=== PATIENT | male | born 1965 | race Caucasian/White ===

== ENCOUNTER 2016-11-15 11:52 | Inpatient (IN) | payer SELFPAY ==
[~2016-11-15] VITALS: Ht 170.1 cm; Wt 79.0 kg
[2016-11-15] VITALS (13 sets, daily range): BP systolic 169–227; BP diastolic 100–153
--- NOTE | ~2016-11-15 | EKG ---
[place], [place] ELECTROCARDIOGRAM REPORT NAME: KISHORE BEE UNIT #: [id number] ROOM: 422 DOCTOR: SOHAN WELSH MD BIRTHDATE: [birth year] DOS: 11/16/2016 STUDY DONE: 11/16/2016. TIME: 09:07 a.m. Normal sinus rhythm at rate of 62. Leftward axis with left ventricular hypertrophy. Lateral T-wave flattening possibly due to hypertrophy. Abnormal electrocardiogram. SOHAN WELSH MD CM:EKGRPT:ELECTROCARDIOGRAM REPORT [id number] SOHAN WELSH MD
--- NOTE | ~2016-11-15 | WRIGHTHP ---
[place], [place] PATIENT HISTORY AND PHYSICAL EXAM NAME: KISHORE BEE UNIT #: [id number] ROOM: 422 DOCTOR: MARILYNN WILSON DO BIRTHDATE: [birth year] DOS: 11/16/2016 PRIMARY CARE PHYSICIAN: None. The patient was seen and evaluated with the resident on 11/16/2016. Please see the resident's note for further details. ASSESSMENT: 1. Hypertension urgency. 2. History of hypertension; however, noncompliant with taking medications. 3. Right knee pain. 4. Elevated liver function tests. 5. Tobacco abuse. 6. Dyslipidemia. 7. Alcohol abuse, admitting to drinking 6-12 beers daily. PLAN: The patient's blood pressure is better controlled. The patient feels completely normal. He denies chest pain or shortness of breath. He will be discharged today. He will be sent home with [facility] and instructed to follow up and the [facility]. MARILYNN WILSON DO CM:HISPHYS:PATIENT HISTORY AND PHYSICAL EXAMINATION 1303 [id number] MARILYNN WILSON DO 11/16/16 1336 interface
[~2016-11-15 11:52] MED LIST: ANAPROX DS550 MG PO; METOPROLOL TART50 M1 PO; MOTRIN800 MG PO; Motrin,Rufen800 MG PO; ZITHROMAX Z PA250 MG PO
[2016-11-16] VITALS: BP 158/96
[2016-11-16 06:08] LABS: BASO % 0.5 % (0.0-1.0); EOS # 0.1 10*3/uL (0.0-0.4); EOS % 2.3 % (1.0-4.0); HEMATOCRIT 47.1 % (42.0-52.0); HEMOGLOBIN 15.7 g/dl (14.0-18.0); LYMPH # 1.7 10*3/uL (1.3-4.4); LYMPH % 27.3 % (27.0-41.0); MEAN CELL VOLUME 93.5 fl (80.0-94.0); MEAN CORPUSCULAR HGB 31.2 pg (27.0-31.0); MEAN CORPUSCULAR HGB CONC 33.3 g/dl (33.0-37.0); MEAN PLATELET VOLUME 10.5 fl (9.6-12.3); MONO # 0.7 10*3/uL (0.1-1.0); MONO % 11.1 % (3.0-9.0); NEUT # 3.6 10*3/uL (2.3-7.9); NEUT % 58.5 % (47.0-73.0); PLATELET COUNT AUTOMATED 180 10*3/uL (130-400); RED BLOOD COUNT 5.04 10*6/uL (4.50-5.90); RED CELL DISTRI WIDTH 12.9 % (0-14.5); WHITE BLOOD COUNT 6.2 10*3/uL (4.8-10.8)
[2016-11-16 06:36] LABS: ALBUMIN 3.5 gm/dl (3.1-4.5); BUN 11 mg/dl (7-24); CARBON DIOXIDE 28 mmol/L (21-32); CHLORIDE 103 mmol/L (98-107); EST GLOM FILT AFRICAN AMERICAN > 60 ml/min; GLUCOSE 95 mg/dL (65-99); MAGNESIUM 2.3 mg/dL (1.5-2.1); POTASSIUM 3.6 mmol/L (3.5-5.1); SGOT/AST 57 IU/L (3-35); SGPT/ALT 98 U/L (12-78); SODIUM 139 mmol/L (136-145)
[2016-11-16 06:43] LABS: ALKALINE PHOSPHATASE 64 U/L (45-117); BILIRUBIN, TOTAL 0.9 mg/dl (0.2-1.0); CHOLESTEROL 188 mg/dL (<200); FREE T4 1.03 ng/dl (0.76-1.46); HDL CHOLESTEROL 69 mg/dl (40-60); LDL CHOLESTEROL 82 mg/dL (9-159); TOTAL PROTEIN 7.4 gm/dL (6.4-8.2); TRIGLYCERIDES 183 mg/dl (<150); VLDL CHOLESTEROL 37 mg/dL (6-40)
[2016-11-16 06:46] LABS: INTERNATIONAL NORM RATIO 1.1 (2.0-3.5); PROTHROMBIN TIME 11.6 SECONDS (9.0-12.4)
[2016-11-16 07:58] LABS: VITAMIN D, 25-HYDROXY 19.8 ng/mL (30-100)
[2016-11-16 07:59] LABS: FOLIC ACID 13.01 ng/mL (>5.38)
[2016-11-16 08:00] VITALS: BP 148/90
[2016-11-16] MEDS ORDERED: D-1000 185 MG-11 TAB PO (11:29)
[2016-11-16] MEDS ORDERED: AMLODIPINE BESY1 TAB PO (11:29)
== END 2016-11-16 14:22 | disposition home or self-care (01) | DRG 305 ==
LOC: ED 11:52 → EDHOLD 16:42 → 4E 17:00
PROVIDERS: Internal Medicine Hospice and Palliative Medicine
DX: I16.0 Hypertensive urgency (principal); F10.10 Alcohol abuse, uncomplicated; I10 Essential (primary) hypertension; M25.561 Pain in right knee; Z72.0 Tobacco use; Z71.6 Tobacco abuse counseling; Z91.14 Patient's other noncompliance with medication regimen; Z79.899 Other long term (current) drug therapy; Z71.41 Alcohol abuse counseling and surveillance of alcoholic

== ENCOUNTER → 2016-11-19 | Outpatient (CLI) | payer SELFPAY ==
[~2016-11-19] MED LIST changes: +AMLODIPINE BESY1 TAB PO; +D-1000 185 MG-11 TAB PO
== END | disposition home or self-care (01) ==
LOC: RESCLI 00:41
DX: I10 Essential (primary) hypertension (principal); F10.10 Alcohol abuse, uncomplicated; E55.9 Vitamin D deficiency, unspecified; Z72.0 Tobacco use; Z71.6 Tobacco abuse counseling

== ENCOUNTER → 2016-11-26 | Outpatient (CLI) | payer SELFPAY | END | disposition home or self-care (01) | LOC: RESCLI 01:08 | DX: I10 Essential (primary) hypertension (principal); F10.10 Alcohol abuse, uncomplicated; E55.9 Vitamin D deficiency, unspecified; Z72.0 Tobacco use; Z71.6 Tobacco abuse counseling ==

== ENCOUNTER → 2017-01-02 | Outpatient (CLI) | payer SELFPAY | END | disposition home or self-care (01) | LOC: RESCLI 12-26 02:25 | DX: I10 Essential (primary) hypertension (principal); E55.9 Vitamin D deficiency, unspecified; F10.10 Alcohol abuse, uncomplicated; Z72.0 Tobacco use ==

== ENCOUNTER → 2017-05-22 | Outpatient (CLI) | payer SELFPAY | END | disposition home or self-care (01) | LOC: RESCLI 03:16 | DX: I10 Essential (primary) hypertension (principal); E55.9 Vitamin D deficiency, unspecified ==

== ENCOUNTER → 2017-08-19 | Outpatient (CLI) | payer SELFPAY | END | disposition home or self-care (01) | LOC: RESCLI 03:10 | DX: I10 Essential (primary) hypertension (principal); E55.9 Vitamin D deficiency, unspecified; I51.7 Cardiomegaly; E66.3 Overweight; Z87.891 Personal history of nicotine dependence ==

== ENCOUNTER 2018-12-25 15:41 | Inpatient (IN) | payer MEDICAID ==
[~2018-12-25] VITALS: Ht 170.1 cm; Wt 77.1 kg
[2018-12-25] VITALS (8 sets, daily range): BP systolic 143–184; BP diastolic 97–114
--- NOTE | ~2018-12-25 | EKG ---
[place], [place] ELECTROCARDIOGRAM REPORT NAME: KISHORE BEE UNIT #: [id number] ROOM: 511 DOCTOR: JEROMY DRAFT REPORT BIRTHDATE: [birth year] [facility] Test Date: 2018-12-25 Test Time: 20:16:42 Pat Name: KISHORE BEE Department: Room: 511 Gender: M Bump Grader Operator: SS RESP : 1965 Requested By: CHRISTINA STEVENS Order Number: [id number] Reading MD: Marquise Alexis MD Measurements Intervals [place] Rate: 112 P: MO: QRS: -21 QRSD: 108 T: 50 QT: 335 QTc: 458 Interpretive Statements Sinus tachycardia Borderline left axis deviation Abnormal R-wave progression, late transition Minimal ST depression, lateral leads Electronically Signed On 12-26-2018 9:14:27 PDT by Marquise Alexis MD CM:EKGRPT:ELECTROCARDIOGRAM REPORT 15 CHRISTINA KOLB DRAFT REPORT CHRISTINA STEVENS DO
--- NOTE | ~2018-12-25 | EKG ---
[place], [place] ELECTROCARDIOGRAM REPORT NAME: KISHORE BEE UNIT #: [id number] ROOM: 511 DOCTOR: JEROMY DRAFT REPORT BIRTHDATE: [birth year] [facility] Test Date: 2018-12-25 Test Time: 23:27:35 Pat Name: KISHORE BEE Department: Room: 511 Gender: M Emery Grinder: SS RESP : 1965 Requested By: CHRISTINA STEVENS Order Number: [id number] Reading MD: Marquise Alexis MD Measurements Intervals [place] Rate: 98 P: 46 ND: 134 QRS: -37 QRSD: 94 T: 18 QT: 363 QTc: 464 Interpretive Statements Sinus rhythm Left axis deviation Abnormal R-wave progression, late transition Minimal ST depression, lateral leads Baseline wander in lead(s) II,III,aVF Electronically Signed On 12-26-2018 9:14:39 PDT by Marquise Alexis MD CM:EKGRPT:ELECTROCARDIOGRAM REPORT [id number] CHRISTINA KOLB DRAFT REPORT CHRISTINA STEVENS DO
--- NOTE | ~2018-12-25 | EKG ---
[place], [place] ELECTROCARDIOGRAM REPORT NAME: KISHORE BEE UNIT #: [id number] ROOM: 511 DOCTOR: JEROMY DRAFT REPORT BIRTHDATE: [birth year] [facility] Test Date: 2018-12-25 Test Time: 17:02:42 Pat Name: KISHORE BEE Department: Room: 511 Gender: M Claim Auditor: : 1965 Requested By: CADEN SUGGS DNP Order Number: [id number] Reading MD: Marquise Alexis MD Measurements Intervals [place] Rate: 112 P: -1 [place]: 184 QRS: -32 QRSD: 88 T: 37 QT: 321 QTc: 438 Interpretive Statements Sinus tachycardia Abnormal R-wave progression, late transition Inferior infarct, old Baseline wander in lead(s) V3 Electronically Signed On 12-26-2018 9:13:16 PDT by Marquise Alexis MD CM:EKGRPT:ELECTROCARDIOGRAM REPORT [id number] CADEN SUGGS DNP EPIPHANY DRAFT REPORT CADEN SUGGS DNP
[2018-12-25 17:22] LABS: BASO # 0.1 10*3/uL (0.0-0.1); BASO % 0.6 % (0.0-1.0); EOS % 0.1 % (1.0-4.0); HEMATOCRIT 51.3 % (42.0-52.0); HEMOGLOBIN 17.8 g/dl (14.0-18.0); LYMPH # 1.2 10*3/uL (1.3-4.4); LYMPH % 13.9 % (27.0-41.0); MEAN CELL VOLUME 92.8 fl (80.0-94.0); MEAN CORPUSCULAR HGB 32.2 pg (27.0-31.0); MEAN CORPUSCULAR HGB CONC 34.7 g/dl (33.0-37.0); MEAN PLATELET VOLUME 10.1 fl (9.6-12.3); MONO % 10.7 % (3.0-9.0); NEUT # 6.6 10*3/uL (2.3-7.9); NEUT % 74.4 % (47.0-73.0); PLATELET COUNT AUTOMATED 194 10*3/uL (130-400); RED BLOOD COUNT 5.53 10*6/uL (4.50-5.90); RED CELL DISTRI WIDTH 12.3 % (0-14.5); WHITE BLOOD COUNT 8.9 10*3/uL (4.8-10.8)
[2018-12-25 17:32] LABS: ACT PARTIAL THROMBO TIME 25.7 SECONDS (20.0-32.1); INTERNATIONAL NORM RATIO 1.1 (2.0-3.5)
[2018-12-25 17:42] LABS: ALBUMIN 3.8 gm/dl (3.1-4.5); ALKALINE PHOSPHATASE 107 U/L (45-117); BUN 3 mg/dl (7-24); CHLORIDE 102 mmol/L (98-107); CREATININE 0.78 mg/dL (0.70-1.30); LIPASE 96 U/L (73-393); SGOT/AST 150 IU/L (3-35); SGPT/ALT 188 U/L (12-78); SODIUM 134 mmol/L (136-145); TOTAL PROTEIN 8.7 gm/dL (6.4-8.2)
[2018-12-25 17:46] LABS: TROPONIN I < 0.015 ng/ml (<0.045)
[2018-12-25 18:10] LABS: BILIRUBIN NEGATIVE (NEGATIVE); BLOOD NEGATIVE (NEGATIVE); CLARITY CLEAR (CLEAR); COLOR YELLOW (YELLOW); GLUCOSE NEGATIVE (NEGATIVE); KETONE TRACE (NEGATIVE); LEUKO ESTERASE NEGATIVE (NEGATIVE); NITRITE NEGATIVE (NEGATIVE); SPECIFIC GRAVITY 1.025 (1.005-1.030)
[2018-12-25 18:17] LABS: BACTERIA 1+; EPITHELIAL CELLS 0-2; FINE GRANULAR CAST 0*2; WBC 0-2 wbc/hpf (0-5)
--- NOTE | 2018-12-25 21:45 | NUR ---
NOTIFIED DR WYATT OF PATIENTS MED REC UP TO DATE AND HEART RATE STAYING 110S PER CM AT THIS TIME. OTHERWISE IN NO DISTRESS.
[2018-12-26] VITALS: BP 137/95
[2018-12-26 01:00] VITALS: BP 134/95
[2018-12-26 07:01] LABS: BASO % 0.4 % (0.0-1.0); EOS # 0.1 10*3/uL (0.0-0.4); EOS % 0.9 % (1.0-4.0); HEMATOCRIT 50.4 % (42.0-52.0); LYMPH # 1.6 10*3/uL (1.3-4.4); LYMPH % 23.4 % (27.0-41.0); MEAN CELL VOLUME 94.2 fl (80.0-94.0); MEAN CORPUSCULAR HGB 31.8 pg (27.0-31.0); MEAN CORPUSCULAR HGB CONC 33.7 g/dl (33.0-37.0); MEAN PLATELET VOLUME 10.5 fl (9.6-12.3); MONO % 15.1 % (3.0-9.0); NEUT # 4.2 10*3/uL (2.3-7.9); NEUT % 60.1 % (47.0-73.0); PLATELET COUNT AUTOMATED 185 10*3/uL (130-400); RED BLOOD COUNT 5.35 10*6/uL (4.50-5.90); RED CELL DISTRI WIDTH 12.6 % (0-14.5); WHITE BLOOD COUNT 6.9 10*3/uL (4.8-10.8)
[2018-12-26 07:21] LABS: ALBUMIN 3.5 gm/dl (3.1-4.5); ALKALINE PHOSPHATASE 95 U/L (45-117); BUN 5 mg/dl (7-24); CHLORIDE 102 mmol/L (98-107); CHOLESTEROL 134 mg/dL (<200); CREATININE 0.82 mg/dL (0.70-1.30); PHOSPHOROUS 3.2 mg/dL (2.5-4.9); POTASSIUM 3.7 mmol/L (3.5-5.1); SGOT/AST 94 IU/L (3-35); SGPT/ALT 152 U/L (12-78); SODIUM 135 mmol/L (136-145); TOTAL PROTEIN 8.1 gm/dL (6.4-8.2); TRIGLYCERIDES 75 mg/dl (<150); VLDL CHOLESTEROL 15 mg/dL (6-40)
[2018-12-26 07:26] LABS: FREE T4 1.27 ng/dl (0.76-1.46); HDL CHOLESTEROL 74 mg/dl (40-60); LDL CHOLESTEROL 45 mg/dL (9-159)
[2018-12-26 08:42] VITALS: BP 170/74
[2018-12-26 08:42] LABS: VITAMIN D, 25-HYDROXY 21.2 ng/mL (30-100)
--- NOTE | 2018-12-26 12:24 | NUR ---
Drapery Inspector in to talk to patient. Patient states lives at HOME with SON. There are FEW steps in the home. Physician: NONE BUT STATES HE WAS GIVEN NUMBER FOR RESIDENT CLINIC AND IS PLANNING ON FOLLOWING WITH THEM [facility]acy: [facility] Home health services: NONE Patient's level of ADLs: INDEPENDENT Patient has working utilities: YES DME: NONE Follow-up physician's appointment after d/c: WILL BE MADE BY HOSPITALIST NURSE DIRECTOR ON DISCHAGE Does patient want to access PORTAL?: NO Discharge plan PT LIVES AT HOME WITH HIS SON AND IS INDEPENDENT IN CARE. DENIES ANY NEEDS ON DISCHARGE. STATES HE PLANS TO RETURN HOME. WILL CONTINUE TO FOLLOW. STATES HE WILL HAVE A RIDE HOME.. FRANKLIN MCGRATH
[2018-12-26 13:10] VITALS: BP 160/108
--- NOTE | 2018-12-26 14:30 | NUR ---
MEDICATED WITH PRN IV ATIVAN FOR SWEATS AND TREMORS, ALSO HAS TACHYCARDIA, RATE 100'S. HICCOUGHS REMAIN PERSISTANT.
[2018-12-26 16:00] VITALS: BP 144/105
[2018-12-26] MEDS ORDERED: LISINOPRIL10 M1 PO (16:27)
--- NOTE | 2018-12-26 16:36 | NUR ---
PRN IV ATIVAN EFFECTIVE, PER PATIENT.
[2018-12-26] MEDS ORDERED: AMLODIPINE BESY10 MG PO (16:48)
--- NOTE | 2018-12-26 17:15 | NUR ---
Discharge instructions reviewed with patient. Patient receptive and verbalizes understanding. Follow-up care arranged. Written instructions given to patient. JAUN HENAO
--- NOTE | 2018-12-26 18:15 | NUR ---
[facility], FOR TRANSPORT HOME BY PRIVATE VEHICLE WITH FRIEND.
== END 2018-12-26 18:15 | disposition home or self-care (01) | DRG 305 ==
LOC: ED 15:41 → 5E 19:01 → EDHOLD 19:01 → 5E 20:11
PROVIDERS: Family Medicine; Nurse Practitioner Family; ADMIT Internal Medicine
DX: I16.0 Hypertensive urgency (principal); E87.1 Hypo-osmolality and hyponatremia; F17.210 Nicotine dependence, cigarettes, uncomplicated; R55 Syncope and collapse; I10 Essential (primary) hypertension; Z82.49 Family history of ischemic heart disease and other diseases of the circulatory system; Z79.899 Other long term (current) drug therapy; Z71.6 Tobacco abuse counseling; Z72.89 Other problems related to lifestyle

== ENCOUNTER → 2019-01-14 | Outpatient (CLI) | payer MEDICAID ==
[~2019-01-14] MED LIST changes: +AMLODIPINE BESY10 MG PO; +LISINOPRIL10 M1 PO; +PANTOPRAZOLE SO40 MG PO; +ZESTRIL40 MG PO
== END | disposition home or self-care (01) ==
LOC: RESCLI 00:11
DX: Z09 Encounter for follow-up examination after completed treatment for conditions other than malignant neoplasm (principal); I10 Essential (primary) hypertension; Z87.891 Personal history of nicotine dependence; Z79.899 Other long term (current) drug therapy; Z88.8 Allergy status to other drugs, medicaments and biological substances

== ENCOUNTER 2019-02-25 13:10 | Inpatient (IN) | payer OTHER ==
[~2019-02-25] VITALS: Ht 170.2 cm; Wt 82.1 kg
--- NOTE | ~2019-02-25 | PR ---
[place], [place] PROGRESS NOTE NAME: KISHORE BEE UNIT #: [id number] ROOM: 406 DOCTOR: GUSTAVO PONCE MD BIRTHDATE: [birth year] DOS: 02/28/2019 SUBJECTIVE: The patient was lying in bed. He was transferred on the ICU. He was on room air. He appeared comfortable. Urine output was reviewed and it seems the polyuria has subsided. I did note he is receiving subcutaneous DDAVP. He appeared comfortable. There are no reports of syncope or seizure. PHYSICAL EXAMINATION: VITAL SIGNS: Temperature 98.5, pulse 73, respiratory rate 16, and blood pressure 123/89. HEENT: Shows no JVD. LUNGS: No accessory muscle use. ABDOMEN: Nondistended. EXTREMITIES: Had no edema. SKIN: Showed no rash. LABORATORY DATA: Hemoglobin 13.4, white count 7.1 and platelets 278. Sodium is 130, potassium 4.5, carbon dioxide 27, BUN 6, creatinine 0.69, glucose 84, calcium 8.3, magnesium 2.8 and albumin 2.8. IMPRESSION AND PLAN: 1. Hyponatremia, which is improving. The patient presented with severe hyponatremia in the setting of alcohol abuse. With fluids, he did develop a large water diuresis. The patient was given DDAVP and his polyuria seems to have improved and it appears the rate of his sodium rises slowed down and is now appropriate. I did note from 02/26/2019, sodium was in the range of 122-125. This morning's labs showed a sodium of 130. Again, sodium appears to be appropriately rising at this time. We would continue DDAVP for now. Continue to monitor labs closely. If he has a rapid rise in sodium greater than 10 mEq, would start D5W immediately. 2. Anemia. H and H stable. 3. Alcohol abuse. Continue supportive care. GUSTAVO PONCE MD CM:PNTRANS 1355 225 GUSTAVO PONCE MD 02/28/19 2251 interface
--- NOTE | ~2019-02-25 | PR ---
[place], [place] PROGRESS NOTE NAME: KISHORE BEE UNIT #: [id number] ROOM: 406 DOCTOR: ROSARIO DE OLIVEIRA,GUSTAVO Rose BIRTHDATE: [birth year] DOS: 03/01/2019 SUBJECTIVE: The patient was seen and examined. He is awake and alert. Denies shortness of breath, fevers, chills, night sweats. He was on room air. He had no complaints. PHYSICAL EXAMINATION: VITAL SIGNS: Temperature 98.7, pulse 62, respiratory rate 18, blood pressure 129/84. HEENT: Shows no JVD. LUNGS: Clear. HEART: S1, S2. No rub. ABDOMEN: Soft, nontender. EXTREMITIES: Showed no edema. SKIN: Showed no rash. LABORATORY DATA: Sodium 132, potassium 4.2, CO2 of 27, BUN 10, creatinine 0.7, glucose 89, calcium 8.4, phosphorus 4.8, albumin 2.9. ASSESSMENT AND PLAN: 1. Hyponatremia. The patient has had improvement in his sodium level, initially presented with severe hyponatremia in the setting of alcohol abuse. With fluids, he did develop a large water diuresis and given DDAVP and his polyuria has improved. The rate of his sodium rise has decreased. Would continue DDAVP for one more day and potentially stop tomorrow. Continue to monitor labs closely while in the hospital. Increase protein intake. 2. Anemia. H and H is stable. 3. Alcohol abuse. Continue supportive care. GUSTAVO PONCE MD CM:PNTRANS 1352 1723 GUSTAVO PONCE MD 03/02/19 0158 interface
--- NOTE | ~2019-02-25 | EKG ---
[place], [place] ELECTROCARDIOGRAM REPORT NAME: KISHORE BEE UNIT #: [id number] ROOM: [facility] DOCTOR: JEROMY DRAFT REPORT BIRTHDATE: [birth year] [facility] Test Date: 2019-02-25 Test Time: 13:38:29 Pat Name: KISHORE BEE Department: Room: [facility] Gender: M Director Intelligence Analysis Programs: Margo Urban : 1965 Requested By: MARILYNN WILSON Order Number: [id number] Reading MD: Katia Cooper MD Measurements Intervals [place] Rate: 83 P: 37 ID: 157 QRS: 15 QRSD: 95 T: 14 QT: 394 QTc: 463 Interpretive Statements Sinus rhythm ST elev, probable normal early repol pattern Baseline wander in lead(s) V2 Compared to ECG 12/25/2018 23:27:35 Left-axis deviation no longer present ST (T wave) deviation still present Electronically Signed On 02-25-2019 14:49:44 PDT by Katia Cooper MD CM:EKGRPT:ELECTROCARDIOGRAM REPORT [id number] MARILYNN KOLB DRAFT REPORT MARILYNN WILSON DO
[~2019-02-25 13:10] MED LIST changes: -PANTOPRAZOLE SO40 MG PO; -ZESTRIL40 MG PO
[2019-02-25 13:11] VITALS: BP 129/91
[2019-02-25 13:37] VITALS: BP 122/87
[2019-02-25 13:55] LABS: ACT PARTIAL THROMBO TIME 29.6 SECONDS (20.0-32.1); INTERNATIONAL NORM RATIO 1.1 (2.0-3.5)
[2019-02-25 13:59] LABS: ALBUMIN 3.1 gm/dl (3.1-4.5); ALKALINE PHOSPHATASE 65 U/L (45-117); BUN 9 mg/dl (7-24); CREATININE 0.72 mg/dL (0.70-1.30); LIPASE 264 U/L (73-393); SGOT/AST 204 IU/L (3-35); SGPT/ALT 50 U/L (12-78); TOTAL PROTEIN 7.1 gm/dL (6.4-8.2)
[2019-02-25 14:08] LABS: HEMATOCRIT 37.7 % (42.0-52.0); HEMOGLOBIN 14.9 g/dl (14.0-18.0); MEAN CORPUSCULAR HGB 32.4 pg (27.0-31.0); PLATELET COUNT AUTOMATED 257 10*3/uL (130-400); RED CELL DISTRI WIDTH 11.6 % (0-14.5); WHITE BLOOD COUNT 12.6 10*3/uL (4.8-10.8)
[2019-02-25 14:09] LABS: MEAN CORPUSCULAR HGB CONC 39.5 g/dl (33.0-37.0)
[2019-02-25 14:10] VITALS: BP 126/76
[2019-02-25 14:11] LABS: SODIUM 105 mmol/L (136-145)
[2019-02-25 14:12] LABS: CHLORIDE 72 mmol/L (98-107); PLATELET SUFFICIENCY NORMAL (NORMAL); TOTAL CELLS COUNTED 100 #CELLS; TROPONIN I < 0.015 ng/ml (<0.045)
--- NOTE | 2019-02-25 14:12 | NUR ---
SODIUM 105 & CHLORIDE @ 72 PER LAB,PHYSICIANS NOTIFIED.
--- NOTE | 2019-02-25 14:47 | NUR ---
PT REMAINS ALERT WITH INCREASING CONFUSION WHILE SPEAKING WITH PHYSICIANS AND FRIEND @ BEDSIDE,SAFETY PRECAUTIONS INTACT AND CALL LIGHT WITHIN REACH.
[2019-02-25 15:47] LABS: BILIRUBIN NEGATIVE (NEGATIVE); BLOOD 3+ (NEGATIVE); CLARITY CLEAR (CLEAR); COLOR YELLOW (YELLOW); GLUCOSE NEGATIVE (NEGATIVE); KETONE 1+ (NEGATIVE); LEUKO ESTERASE NEGATIVE (NEGATIVE); NITRITE NEGATIVE (NEGATIVE)
[2019-02-25 15:48] LABS: URINE CHLORIDE, RANDOM < 10 mmol/L
--- NOTE | 2019-02-25 15:51 | NUR ---
PHYSICIANS REMAIN IN EXAM ROOM 2013 @ THIS TIME,[facility] NOTIFIED OF DELAY.
[2019-02-25 16:03] LABS: BACTERIA 1+
[2019-02-25 16:04] VITALS: BP 100/68
[2019-02-25 16:15] VITALS: BP 140/76
--- NOTE | 2019-02-25 16:15 | NUR ---
A 53, admitted to ICCU, under the services of JESSY Cho DO with a diagnosis of METABOLIC ENCEPHALOPATHY AND HYPONATREMIA. Chief complaint is DIZZINESS AND SLURRED SPEECH FOR 2 DAYS. Patient arrived via stretcher from ER. Monitor applied. Initial assessment completed. Vital signs taken and recorded. JESSY CHO DO notified of admission to the unit. Orders received. See assessment for past medical history, medications and allergies. Patient and/or family oriented to unit. [facility] visitation policy reviewed. Clothing/patient valuable form completed. RONAL LOREDO
[2019-02-25] MEDS ORDERED: ZESTRIL40 MG PO (16:30)
[2019-02-25 18:30] LABS: BUN 9 mg/dl (7-24); CHLORIDE 77 mmol/L (98-107); CREATININE 0.62 mg/dL (0.70-1.30); POTASSIUM 2.8 mmol/L (3.5-5.1)
[2019-02-25 18:36] LABS: SODIUM 108 mmol/L (136-145)
[2019-02-25 20:00] VITALS: BP 129/74
[2019-02-25 21:58] LABS: BUN 8 mg/dl (7-24); CHLORIDE 77 mmol/L (98-107); CREATININE 0.54 mg/dL (0.70-1.30); POTASSIUM 3.1 mmol/L (3.5-5.1)
[2019-02-25 22:01] LABS: SODIUM 107 mmol/L (136-145)
--- NOTE | 2019-02-25 22:30 | NUR ---
DR COOK NOTIFIED OF LAB RESULTS. NEW ORDERS RECEIVED. GIVE K+ 40MEQ PO X1 NOW. GIVE A BANANA BAG BOLUS X1 NOW. THEN CONTINUE WITH NS & 20 MEQ NS AND INCREASE TO 120CC/HR. OBTAIN URINE OSMO AND LYTES IN AM WITH AM LABS.
[2019-02-26] VITALS: BP 118/73
[2019-02-26 04:00] VITALS: BP 101/67
[2019-02-26 05:35] LABS: URINE CHLORIDE, RANDOM < 10 mmol/L
[2019-02-26 06:24] LABS: ALBUMIN 2.6 gm/dl (3.1-4.5); ALKALINE PHOSPHATASE 56 U/L (45-117); BUN 7 mg/dl (7-24); CHLORIDE 90 mmol/L (98-107); CHOLESTEROL 108 mg/dL (<200); CREATININE 0.59 mg/dL (0.70-1.30); HDL CHOLESTEROL 45 mg/dl (40-60); LDL CHOLESTEROL 44 mg/dL (9-159); PHOSPHOROUS 1.8 mg/dL (2.5-4.9); POTASSIUM 3.3 mmol/L (3.5-5.1); SGOT/AST 146 IU/L (3-35); SGPT/ALT 55 U/L (12-78); TOTAL PROTEIN 6.1 gm/dL (6.4-8.2); TRIGLYCERIDES 95 mg/dl (<150); VLDL CHOLESTEROL 19 mg/dL (6-40)
[2019-02-26 06:29] LABS: THYROID STIM HORMONE (HS) 0.896 uIU/ml (0.358-4.75)
[2019-02-26 06:39] LABS: SODIUM 121 mmol/L (136-145)
[2019-02-26 06:47] LABS: EOS % 0.3 % (1.0-4.0); HEMATOCRIT 33.7 % (42.0-52.0); HEMOGLOBIN 12.6 g/dl (14.0-18.0); LYMPH # 0.9 10*3/uL (1.3-4.4); LYMPH % 14.8 % (27.0-41.0); MEAN CORPUSCULAR HGB 31.8 pg (27.0-31.0); MEAN PLATELET VOLUME 10.5 fl (9.6-12.3); MONO % 16.3 % (3.0-9.0); NEUT # 3.9 10*3/uL (2.3-7.9); NEUT % 67.7 % (47.0-73.0); PLATELET COUNT AUTOMATED 214 10*3/uL (130-400); RED BLOOD COUNT 3.96 10*6/uL (4.50-5.90); RED CELL DISTRI WIDTH 11.7 % (0-14.5); WHITE BLOOD COUNT 5.8 10*3/uL (4.8-10.8)
[2019-02-26 06:49] LABS: MEAN CELL VOLUME 85.1 fl (80.0-94.0); MEAN CORPUSCULAR HGB CONC 37.4 g/dl (33.0-37.0)
--- NOTE | 2019-02-26 06:50 | NUR ---
DR COOK CALLED IN AND UPDATED ON PT LABS AND URINES. NEW ORDERS RECEIVED.
--- NOTE | 2019-02-26 07:08 | NUR ---
KISHORE BEE [id number] Please refer to the physician's history and physical for past medical history, comorbid conditions, and allergies. Diagnosis: METABOLIC ENCEPHALOPATHY HYPONATREMIA Jhon Score: 18,LOW OR NO RISK WOUND DESCRIPTIONS: Wound Number: 1 Periarea and buttocks is red and blanchable at time of assessment. No open areas noted at time of assessment. No drainage noted at time of assessment. Surface the patient is resting on: Isoflex SKIN PREVENTION RECOMMENDATION: 1. Pressure redistribution support surface as appropriate 2. Elevate heels 3. Remove boots/TEDS every shift and reapply 4. Head of bed 30 degrees as tolerated 5. Assess nutrition and hydration 6. Manage moisture 7. Avoid the use of containment devices while in bed 8. Use absorptive products on surfaces limit layers of linens on bed 9. Turn and reposition every 1-2 hours in bed and every 1 hour in chair as tolerated 10. Weight shifts every 15 minutes while up in chair 11. Offloading with pillows or device to keep heels elevated off bed 12. Monitor skin at least every shift 13. Inspect under medical devices twice a day WOUND TREATMENT RECOMMENDATIONS: Cleanse periarea and buttocks with soap and water and apply hydraguard every shift and prn for soiling. Wheelchair cushion when oob. Heel raiser pro boots to bilateral heels while in bed.
[2019-02-26 08:00] VITALS: BP 94/62
--- NOTE | 2019-02-26 08:44 | NUR ---
Dr. Patricia notified of wound care recommendations.
--- NOTE | 2019-02-26 08:45 | NUR ---
Dr. Sidhu notified of wound care recommendation.
--- NOTE | 2019-02-26 09:00 | NUR ---
Physics Teacher in to talk to patient. Patient states lives at home alone with his friends checking in on him. There are 9-10 steps in the home. Physician: resident clinic [facility]acy: [facility] Home health services: none Patient's level of ADLs: INDEPENDENT Patient has working utilities: yes DME: none Follow-up physician's appointment after d/c: will be made by the hospitalist nurse director upon discharge Does patient want to access PORTAL?: no Discharge plan discussed with patient. He states he lives at home alone as his son and his son's moved out. He is independent in his ADLs and ambulation. Discussed home health care services and he denies any home needs at this time. He has talked to Natasha in [facility] previously and has filed an application for Medicaid in [place]. When medically stable he will be discharged to home. A friend will transport on discharge. DONYA JIMENEZ
--- NOTE | 2019-02-26 09:16 | NUR ---
DR. TAYLOR HERE TO SEE PATIENT.
[2019-02-26 10:37] LABS: BUN 7 mg/dl (7-24); CHLORIDE 94 mmol/L (98-107); CREATININE 0.67 mg/dL (0.70-1.30); POTASSIUM 3.9 mmol/L (3.5-5.1); SODIUM 122 mmol/L (136-145)
--- NOTE | 2019-02-26 11:30 | NUR ---
DR. COOK HERE TO SEE PATIENT.
[2019-02-26 12:00] VITALS: BP 91/64
[2019-02-26 15:55] LABS: ALBUMIN 2.7 gm/dl (3.1-4.5); BUN 7 mg/dl (7-24); CHLORIDE 96 mmol/L (98-107); CREATININE 0.61 mg/dL (0.70-1.30); POTASSIUM 3.7 mmol/L (3.5-5.1); SODIUM 125 mmol/L (136-145)
[2019-02-26 15:56] LABS: PHOSPHOROUS 2.4 mg/dL (2.5-4.9)
[2019-02-26 16:00] VITALS: BP 100/59
--- NOTE | 2019-02-26 16:28 | NUR ---
DR. COOK NOTIFIED OF LABS.
[2019-02-26 20:00] VITALS: BP 120/76
--- NOTE | 2019-02-26 20:30 | NUR ---
PATIENT ASSISTED TO THE BEDSIDE COMMODE USING 2 RN'S FOR ASSISTANCE. PATIENT MOVED BOWELS FOR 2OOML OF LIQUID BROWN BM. ASSISTED BACK TO BED AFTER PER PATIENTS REQUEST. DENIES OTHER NEEDS AT THIS TIME. CALL LIGHT WITHIN REACH. RN WILL CONTINUE TO MONITOR
--- NOTE | 2019-02-26 20:55 | NUR ---
CALLED INTO PATIENT ROOM, PATIENT YELLING OUT FOR NURSE. EDUCATED ON USE OF CALL LIGHT RATHER THAN YELLING. PATIENT REQUESTING TO HAVE DINNER TRAY MOVED FROM BEDSIDE TABLE AT THIS TIME. PATIENT STATES HE IS STILL EATING IT BUT DOESNT WANT IT IN FRONT OF HIM RIGHT NOW AND THAT HE IS GOING TO EAT SOME MORE LATER. RN PLACED TRAY ON BEDSIDE CHAIR. PATIENT DENIES OTHER NEEDS AT THIS TIME. CALL LIGHT WITHIN REACH, AND PATIENT ONCE AGAIN EDUCATED ONUSING IT IF NEEDS WERE TO ARISE. PATIENT VERBALIZED UNDERSTANDING. RN WILL CONTINUE TO MONITOR
[2019-02-26 21:31] LABS: ALBUMIN 2.7 gm/dl (3.1-4.5); BUN 7 mg/dl (7-24); CHLORIDE 90 mmol/L (98-107); CREATININE 0.62 mg/dL (0.70-1.30); POTASSIUM 3.2 mmol/L (3.5-5.1); SODIUM 122 mmol/L (136-145)
[2019-02-26 21:32] LABS: PHOSPHOROUS 2.1 mg/dL (2.5-4.9)
--- NOTE | 2019-02-26 21:55 | NUR ---
DR COOK NOTIFIED OF 9PM LABS, ORDERS RECIEVED
[2019-02-27] VITALS: BP 127/85
--- NOTE | 2019-02-27 00:36 | NUR ---
RESTORIL EFFECTIVE. PT SLEEPING. NO SXS OF DISTRESS NOTED. CALL LIGHT IN REACH. BED ALARM ON. WILL CONTINUE TO MONITOR.
--- NOTE | 2019-02-27 01:30 | NUR ---
PATIENT ASSISTED TO THE BEDSIDE COMMODE AT THIS TIME, MOVED BOWELS FOR 300ML OF LIQUID BROWN BM. ASSISTED BACK INTO THE BED, AND IS CURRENTLY DENYING ANY NEEDS AT THIS TIME. RN WILL CONTINUE TO MONITOR
[2019-02-27 04:00] VITALS: BP 120/82
[2019-02-27 05:22] LABS: BASO % 0.4 % (0.0-1.0); EOS % 0.6 % (1.0-4.0); HEMATOCRIT 34.6 % (42.0-52.0); HEMOGLOBIN 12.7 g/dl (14.0-18.0); LYMPH # 1.1 10*3/uL (1.3-4.4); LYMPH % 19.5 % (27.0-41.0); MEAN CELL VOLUME 86.9 fl (80.0-94.0); MEAN CORPUSCULAR HGB 31.9 pg (27.0-31.0); MEAN CORPUSCULAR HGB CONC 36.7 g/dl (33.0-37.0); MEAN PLATELET VOLUME 9.9 fl (9.6-12.3); MONO # 0.9 10*3/uL (0.1-1.0); MONO % 16.5 % (3.0-9.0); NEUT # 3.3 10*3/uL (2.3-7.9); NEUT % 61.9 % (47.0-73.0); PLATELET COUNT AUTOMATED 201 10*3/uL (130-400); RED BLOOD COUNT 3.98 10*6/uL (4.50-5.90); WHITE BLOOD COUNT 5.4 10*3/uL (4.8-10.8)
[2019-02-27 05:26] LABS: ALBUMIN 2.7 gm/dl (3.1-4.5); ALKALINE PHOSPHATASE 60 U/L (45-117); BUN 5 mg/dl (7-24); CHLORIDE 90 mmol/L (98-107); CREATININE 0.51 mg/dL (0.70-1.30); PHOSPHOROUS 3.3 mg/dL (2.5-4.9); POTASSIUM 3.1 mmol/L (3.5-5.1); SGOT/AST 110 IU/L (3-35); SGPT/ALT 67 U/L (12-78); SODIUM 122 mmol/L (136-145); TOTAL PROTEIN 6.2 gm/dL (6.4-8.2)
[2019-02-27 08:00] VITALS: BP 114/79
--- NOTE | 2019-02-27 09:00 | NUR ---
Airborne And Air Delivery Specialist in to see patient. No new needs or request at this time. He denies any home needs. When medically stable he will be discharged to home.
[2019-02-27 12:00] VITALS: BP 117/78
--- NOTE | 2019-02-27 15:30 | NUR ---
TRANSFERRED TO ROOM [facility] VIA BED.
[2019-02-27 16:00] VITALS: BP 154/95
--- NOTE | 2019-02-27 16:15 | NUR ---
Discharge instructions reviewed with patient/family. Patient receptive and verbalizes understanding. Follow-up care arranged. Written instructions given to patient/family. QUIRINO ERICKSON
[2019-02-27 20:00] VITALS: BP 139/90
--- NOTE | 2019-02-27 21:45 | NUR ---
PT REQUESTING A SLEEPING PILL. NO ORDERS ON MAR TO HELP WITH THIS. CALLED . NEW ORDER FOR RESTORIL GIVEN. SEE MAR.
--- NOTE | 2019-02-27 22:37 | NUR ---
RESTORIL GIVEN FOR SLEEPING AIDE. WILL MONITOR. CALL LIGHT IN REACHL. BED ALARM ON.
[2019-02-28] VITALS: BP 136/87
--- NOTE | 2019-02-28 00:36 | NUR ---
RESTORIL EFFECTIVE. SLEEPING. NO SXS OF DISTRESS NOTED. CALL LIGHT IN REACH. BED ALARM ON. WILL CONTINUE TO MONITOR.
[2019-02-28 06:40] LABS: BASO % 0.4 % (0.0-1.0); EOS % 0.6 % (1.0-4.0); HEMOGLOBIN 13.4 g/dl (14.0-18.0); LYMPH # 1.4 10*3/uL (1.3-4.4); MEAN CELL VOLUME 89.6 fl (80.0-94.0); MEAN CORPUSCULAR HGB 31.6 pg (27.0-31.0); MEAN CORPUSCULAR HGB CONC 35.3 g/dl (33.0-37.0); MEAN PLATELET VOLUME 9.5 fl (9.6-12.3); MONO # 1.4 10*3/uL (0.1-1.0); MONO % 19.7 % (3.0-9.0); NEUT # 4.1 10*3/uL (2.3-7.9); NEUT % 57.6 % (47.0-73.0); RED BLOOD COUNT 4.24 10*6/uL (4.50-5.90); RED CELL DISTRI WIDTH 12.3 % (0-14.5); WHITE BLOOD COUNT 7.1 10*3/uL (4.8-10.8)
[2019-02-28 06:54] LABS: PLATELET COUNT AUTOMATED 278 10*3/uL (130-400)
[2019-02-28 07:00] LABS: ALBUMIN 2.8 gm/dl (3.1-4.5); BUN 6 mg/dl (7-24); CHLORIDE 97 mmol/L (98-107); CREATININE 0.69 mg/dL (0.70-1.30); SGOT/AST 82 IU/L (3-35); SODIUM 130 mmol/L (136-145); TOTAL PROTEIN 6.8 gm/dL (6.4-8.2)
[2019-02-28 07:02] LABS: ALKALINE PHOSPHATASE 65 U/L (45-117); SGPT/ALT 87 U/L (12-78)
[2019-02-28 07:17] LABS: POTASSIUM 4.5 mmol/L (3.5-5.1)
[2019-02-28 09:20] VITALS: BP 112/72
[2019-02-28 11:25] VITALS: BP 123/89
[2019-02-28 15:09] VITALS: BP 133/89
--- NOTE | 2019-02-28 19:51 | NUR ---
Called due to missed dose of DDAVP today. New order to give injection now of DDAVP. See MAR.
[2019-02-28 20:00] VITALS: BP 137/90
[2019-03-01] VITALS: BP 123/83
[2019-03-01 06:28] LABS: ALBUMIN 2.9 gm/dl (3.1-4.5); BUN 10 mg/dl (7-24); CHLORIDE 99 mmol/L (98-107); CREATININE 0.74 mg/dL (0.70-1.30); PHOSPHOROUS 4.8 mg/dL (2.5-4.9); POTASSIUM 4.2 mmol/L (3.5-5.1); SODIUM 132 mmol/L (136-145)
[2019-03-01 08:00] VITALS: BP 129/84
--- NOTE | 2019-03-01 08:00 | NUR ---
BEDSIDE REPORT RECIEVED FROM SOCORRO WILKERSON. PATIENT AWAKE, ALERT AND ORIENTED. NO SOB OR DISTRESS NOTED. RESPIRATIONS EASY AND REGULAR. NO STATED COMPLAINTS. DENIES PAIN. BED IN LOWEST LOCKED POSTIION AND CALL LIGHT WITHIN REACH. WILL CONTINUE TO MONITOR.
[2019-03-01 12:00] VITALS: BP 137/96
[2019-03-01 16:00] VITALS: BP 137/92
[2019-03-01 20:00] VITALS: BP 121/87
--- NOTE | 2019-03-01 20:00 | NUR ---
PT RESTING IN BED. RESP-EASY AND REGULAR. NO C/O AT THIS TIME. CALL LIGHT IN REACH. SEE SHIFT ASSESSMENT.
--- NOTE | 2019-03-01 22:00 | NUR ---
RESTING IN BED WITH EYES CLOSED. RESP-EASY AND REGULAR. CALL LIGHT N REACH.
[2019-03-02] VITALS: BP 134/88
--- NOTE | 2019-03-02 | NUR ---
PT RESTING IN BED WTH EYES CLOSED. RESP-EASY AND REGULAR. AWAKENS EASILY. NO C/O AT THIS TIME. CALL LIGHT IN REACH. SEE SHIFT ASSESSMENT.
--- NOTE | 2019-03-02 01:40 | NUR ---
24 HR chart check completed.
--- NOTE | 2019-03-02 04:00 | NUR ---
SLEEPING IN BED. RESP-EASY AND REGULAR. CALL LIGHT IN REACH.
--- NOTE | 2019-03-02 05:30 | NUR ---
TOLERATED ROUTINE MED WITH NO PROBLEM. CALL LIGHT IN REACH. NO C/O AT THIS TIME.
[2019-03-02 06:38] LABS: BASO % 0.7 % (0.0-1.0); EOS # 0.1 10*3/uL (0.0-0.4); EOS % 1.3 % (1.0-4.0); HEMOGLOBIN 13.5 g/dl (14.0-18.0); LYMPH # 1.8 10*3/uL (1.3-4.4); MEAN CORPUSCULAR HGB 31.5 pg (27.0-31.0); MEAN CORPUSCULAR HGB CONC 33.8 g/dl (33.0-37.0); MEAN PLATELET VOLUME 9.6 fl (9.6-12.3); MONO % 16.8 % (3.0-9.0); NEUT # 2.9 10*3/uL (2.3-7.9); NEUT % 48.7 % (47.0-73.0); PLATELET COUNT AUTOMATED 334 10*3/uL (130-400); RED BLOOD COUNT 4.28 10*6/uL (4.50-5.90); RED CELL DISTRI WIDTH 12.5 % (0-14.5); WHITE BLOOD COUNT 5.9 10*3/uL (4.8-10.8)
[2019-03-02 06:43] LABS: ALBUMIN 2.8 gm/dl (3.1-4.5); BUN 12 mg/dl (7-24); CHLORIDE 102 mmol/L (98-107); CREATININE 0.75 mg/dL (0.70-1.30); PHOSPHOROUS 4.5 mg/dL (2.5-4.9); POTASSIUM 3.8 mmol/L (3.5-5.1); SODIUM 135 mmol/L (136-145)
[2019-03-02 06:45] LABS: MEAN CELL VOLUME 93.5 fl (80.0-94.0)
[2019-03-02 08:00] VITALS: BP 122/84
--- NOTE | 2019-03-02 09:00 | NUR ---
[place] Attendant in to see patient. He is sitting up on the edge of his bed eating breakfast without distress noted. No new needs or request at this time. He denies any home needs. When medically stable he will be discharged to home.
[2019-03-02 12:00] VITALS: BP 115/82
[2019-03-02 16:00] VITALS: BP 132/89
[2019-03-02 20:00] VITALS: BP 146/83
--- NOTE | 2019-03-02 20:00 | NUR ---
PT RESTING IN BED. RESP-EASY AND REGULAR. NO C/O AT THIS TIME. CALL LIGHT IN REACH. SEE SHIFT ASSESSMENT.
--- NOTE | 2019-03-02 22:00 | NUR ---
RESTING IN BED. NO C/O CALL LIGHT IN REACH.
[2019-03-03] VITALS: BP 119/87
--- NOTE | 2019-03-03 | NUR ---
PT RESTING IN BED WITH EYES CLOSED. RESP-EASY AND REGULAR. NO C/O AT THIS TIME. CALL LIGHT IN REACH. SEE SHIFT ASSESSMENT.
--- NOTE | 2019-03-03 03:49 | NUR ---
24 HR chart check completed.
--- NOTE | 2019-03-03 06:05 | NUR ---
PT TOLERATED ROUTINE MED WITH NO PROBLEM. NO C/O AT THIS TIME. CALL LIGHT IN REACH.
[2019-03-03 07:31] LABS: ALBUMIN 2.7 gm/dl (3.1-4.5); BUN 12 mg/dl (7-24); CHLORIDE 104 mmol/L (98-107); SODIUM 137 mmol/L (136-145)
[2019-03-03 07:32] LABS: CREATININE 0.76 mg/dL (0.70-1.30); PHOSPHOROUS 4.4 mg/dL (2.5-4.9)
[2019-03-03 08:00] VITALS: BP 134/86
--- NOTE | 2019-03-03 09:00 | NUR ---
RESTING ON SIDE OF BED. NO VOICED COMPLAINTS. HOPIMG TO GO HOME TODAY
--- NOTE | 2019-03-03 09:00 | NUR ---
Questioned Documents Examiner in to see patient. No new needs or request at this time. He denies any home needs. When medically stable he will be discharged to home.
[2019-03-03 12:00] VITALS: BP 123/90
--- NOTE | 2019-03-03 14:48 | NUR ---
Discharge instructions reviewed with patient/family. Patient receptive and verbalizes understanding. Follow-up care arranged. Written instructions given to patient/family. QUIRINO ERICKSON
== END 2019-03-03 14:48 | disposition home or self-care (01) | DRG 640 ==
LOC: ED 13:10 → ICCU 15:22 → EDHOLD 15:22 → ICCU 16:20 → 4E 02-27 15:37
PROVIDERS: Emergency Medicine; Internal Medicine; Internal Medicine Nephrology; Student in an Organized Health Care Education/Training Program; ADMIT Internal Medicine
DX: E87.1 Hypo-osmolality and hyponatremia (principal); G93.41 Metabolic encephalopathy; E83.51 Hypocalcemia; E87.6 Hypokalemia; F10.10 Alcohol abuse, uncomplicated; R42 Dizziness and giddiness; F17.210 Nicotine dependence, cigarettes, uncomplicated; E66.3 Overweight; E83.39 Other disorders of phosphorus metabolism; D72.829 Elevated white blood cell count, unspecified; D64.9 Anemia, unspecified; R74.0 Nonspecific elevation of levels of transaminase and lactic acid dehydrogenase [LDH]; I10 Essential (primary) hypertension; E83.41 Hypermagnesemia; Z82.49 Family history of ischemic heart disease and other diseases of the circulatory system; Z79.899 Other long term (current) drug therapy; Z71.41 Alcohol abuse counseling and surveillance of alcoholic; Z68.28 Body mass index [BMI] 28.0-28.9, adult

== ENCOUNTER → 2019-03-09 | Outpatient (CLI) | payer OTHER ==
[~2019-03-09] MED LIST changes: +PANTOPRAZOLE SO40 MG PO; +ZESTRIL40 MG PO
[2019-03-10 07:24] LABS: BASO # 0.1 10*3/uL (0.0-0.1); EOS # 0.1 10*3/uL (0.0-0.4); EOS % 1.3 % (1.0-4.0); HEMATOCRIT 45.4 % (42.0-52.0); LYMPH % 42.3 % (27.0-41.0); MEAN CORPUSCULAR HGB 31.7 pg (27.0-31.0); MEAN PLATELET VOLUME 9.5 fl (9.6-12.3); MONO % 13.9 % (3.0-9.0); NEUT % 41.1 % (47.0-73.0); PLATELET COUNT AUTOMATED 451 10*3/uL (130-400); RED BLOOD COUNT 4.73 10*6/uL (4.50-5.90); RED CELL DISTRI WIDTH 12.3 % (0-14.5); WHITE BLOOD COUNT 7.2 10*3/uL (4.8-10.8)
[2019-03-10 07:36] LABS: BUN 25 mg/dl (7-24); CHLORIDE 106 mmol/L (98-107); CREATININE 1.08 mg/dL (0.70-1.30); POTASSIUM 4.9 mmol/L (3.5-5.1); SODIUM 138 mmol/L (136-145)
== END | disposition home or self-care (01) ==
LOC: RESCLI 00:37
PROVIDERS: Internal Medicine
DX: Z09 Encounter for follow-up examination after completed treatment for conditions other than malignant neoplasm (principal); E87.1 Hypo-osmolality and hyponatremia; F10.10 Alcohol abuse, uncomplicated; I10 Essential (primary) hypertension

== ENCOUNTER 2019-03-21 15:01 | Inpatient (IN) | payer OTHER ==
[~2019-03-21] VITALS: Ht 170.1 cm; Wt 83.1 kg
[~2019-03-21 15:01] MED LIST changes: -PANTOPRAZOLE SO40 MG PO
[2019-03-21 15:03] VITALS: BP 176/107
--- NOTE | 2019-03-21 16:05 | NUR ---
OSITO MONTEIRO LEATHER FITTER, NOTIFIED OF NA LEVEL.
[2019-03-21 16:08] LABS: ALBUMIN 3.1 gm/dl (3.1-4.5); ALKALINE PHOSPHATASE 84 U/L (45-117); BUN 10 mg/dl (7-24); CHLORIDE 87 mmol/L (98-107); CREATININE 0.56 mg/dL (0.70-1.30); POTASSIUM 3.7 mmol/L (3.5-5.1); SGOT/AST 20 IU/L (3-35); SGPT/ALT 44 U/L (12-78); TOTAL PROTEIN 6.9 gm/dL (6.4-8.2)
[2019-03-21 16:09] VITALS: BP 168/92
[2019-03-21 16:11] LABS: SODIUM 118 mmol/L (136-145)
[2019-03-21 16:20] LABS: BASO % 0.3 % (0.0-1.0); EOS # 0.1 10*3/uL (0.0-0.4); EOS % 0.8 % (1.0-4.0); HEMATOCRIT 36.6 % (42.0-52.0); HEMOGLOBIN 13.2 g/dl (14.0-18.0); LYMPH # 2.5 10*3/uL (1.3-4.4); LYMPH % 20.1 % (27.0-41.0); MEAN CELL VOLUME 86.9 fl (80.0-94.0); MEAN CORPUSCULAR HGB 31.4 pg (27.0-31.0); MEAN CORPUSCULAR HGB CONC 36.1 g/dl (33.0-37.0); MEAN PLATELET VOLUME 9.9 fl (9.6-12.3); MONO # 1.3 10*3/uL (0.1-1.0); MONO % 10.9 % (3.0-9.0); NEUT # 8.1 10*3/uL (2.3-7.9); NEUT % 66.4 % (47.0-73.0); PLATELET COUNT AUTOMATED 391 10*3/uL (130-400); RED BLOOD COUNT 4.21 10*6/uL (4.50-5.90); RED CELL DISTRI WIDTH 12.2 % (0-14.5); WHITE BLOOD COUNT 12.2 10*3/uL (4.8-10.8)
[2019-03-21 16:31] VITALS: BP 143/110
[2019-03-21 16:57] VITALS: BP 144/90
[2019-03-21 17:49] VITALS: BP 142/98
--- NOTE | 2019-03-21 18:09 | NUR ---
A 53, admitted to , under the services of GUERLINE Tam DO with a diagnosis of HYPONATREMIA, GENERALIZED WEAKNESS. Chief complaint is HICCUPS. Patient arrived via bed from ER. Monitor applied. Initial assessment completed. Vital signs taken and recorded. GUERLINE TAM DO notified of admission to the unit. Orders received. See assessment for past medical history, medications and allergies. Patient and/or family oriented to unit. [facility] visitation policy reviewed. Clothing/patient valuable form completed. BENSON BURGOS
--- NOTE | 2019-03-21 18:33 | NUR ---
DR. COOK'S ANSWERING SERVICE NOTIFIED OF CONSULT.
--- NOTE | 2019-03-21 18:57 | NUR ---
NOTIFIED DR. MCLAUGHLIN OF PT'S BP.
[2019-03-21 19:54] LABS: BUN 9 mg/dl (7-24); CHLORIDE 91 mmol/L (98-107); POTASSIUM 3.4 mmol/L (3.5-5.1); SODIUM 123 mmol/L (136-145)
[2019-03-21 20:00] VITALS: BP 135/84
--- NOTE | 2019-03-21 20:43 | NUR ---
CALLED DR. COOK WITH URINE & LAB RESULTS. NEW ORDERS RECEIVED TO DC IV FLUIDS, DC FLUID RESTRICTION & ENCOURAGE ORAL INTAKE.
--- NOTE | 2019-03-21 20:44 | NUR ---
EXPLAINED PLAN OF CARE TO PATIENT. VERBALIZED UNDERSTANDING. CALL LIGHT WITHIN REACH.
[2019-03-21 23:01] LABS: BUN 8 mg/dl (7-24); CHLORIDE 96 mmol/L (98-107); CREATININE 0.68 mg/dL (0.70-1.30); POTASSIUM 3.6 mmol/L (3.5-5.1); SODIUM 126 mmol/L (136-145)
[2019-03-22] VITALS: BP 138/77
--- NOTE | 2019-03-22 00:52 | NUR ---
UP TO BATHROOM MULIPLE TIMES TO VOID. PT. VOICES NO C/O AT THIS TIME. NO DISTRESS NOTED. WILL CONTINUE TO MONITOR. CALL LIGHT WITHIN REACH.
[2019-03-22 06:23] LABS: BASO % 0.4 % (0.0-1.0); EOS # 0.1 10*3/uL (0.0-0.4); EOS % 1.1 % (1.0-4.0); HEMATOCRIT 37.6 % (42.0-52.0); HEMOGLOBIN 13.1 g/dl (14.0-18.0); LYMPH % 27.2 % (27.0-41.0); MEAN CELL VOLUME 88.3 fl (80.0-94.0); MEAN CORPUSCULAR HGB 30.8 pg (27.0-31.0); MEAN CORPUSCULAR HGB CONC 34.8 g/dl (33.0-37.0); MEAN PLATELET VOLUME 9.9 fl (9.6-12.3); MONO # 1.1 10*3/uL (0.1-1.0); MONO % 14.4 % (3.0-9.0); NEUT # 4.2 10*3/uL (2.3-7.9); NEUT % 55.4 % (47.0-73.0); PLATELET COUNT AUTOMATED 405 10*3/uL (130-400); RED BLOOD COUNT 4.26 10*6/uL (4.50-5.90); RED CELL DISTRI WIDTH 12.7 % (0-14.5); WHITE BLOOD COUNT 7.5 10*3/uL (4.8-10.8)
[2019-03-22 06:57] LABS: ALBUMIN 2.9 gm/dl (3.1-4.5); BUN 7 mg/dl (7-24); CHLORIDE 96 mmol/L (98-107); CREATININE 0.67 mg/dL (0.70-1.30); POTASSIUM 3.9 mmol/L (3.5-5.1); SGOT/AST 21 IU/L (3-35); SGPT/ALT 44 U/L (12-78); SODIUM 129 mmol/L (136-145); TOTAL PROTEIN 6.6 gm/dL (6.4-8.2)
[2019-03-22 06:59] LABS: ALKALINE PHOSPHATASE 78 U/L (45-117)
[2019-03-22] MEDS ORDERED: PANTOPRAZOLE SO40 MG PO (12:00)
--- NOTE | 2019-03-22 13:40 | NUR ---
[facility] Discharge instructions reviewed with patient/family. Patient receptive and verbalizes understanding. Follow-up care arranged. Written instructions given to patient/family. SHAI SWAN
[2019-03-26 16:10] LABS: ALBUMIN, URINE 17.4 % (.); ALPHA-1-GLOBULIN, URINE 2.8 % (.); ALPHA-2-GLOBULIN, URINE 4.3 % (.); GAMMA GLOBULIN, URINE 43.5 % (.); M-SPIKE, % Not Observed % (Not Observed); PROTEIN,TOTAL - URINE RANDOM <4.0 mg/dL (Not Estab.)
== END 2019-03-22 13:40 | disposition home or self-care (01) | DRG 641 ==
LOC: ED 15:01 → EDHOLD 16:27 → 5E 17:25
PROVIDERS: Family Medicine; Internal Medicine Nephrology; Nurse Practitioner Family; ADMIT Internal Medicine
DX: E87.1 Hypo-osmolality and hyponatremia (principal); R65.10 Systemic inflammatory response syndrome (SIRS) of non-infectious origin without acute organ dysfunction; E44.1 Mild protein-calorie malnutrition; R06.6 Hiccough; E87.8 Other disorders of electrolyte and fluid balance, not elsewhere classified; F17.210 Nicotine dependence, cigarettes, uncomplicated; R51 Headache; E83.51 Hypocalcemia; I10 Essential (primary) hypertension; F10.10 Alcohol abuse, uncomplicated; Z71.6 Tobacco abuse counseling; Z82.49 Family history of ischemic heart disease and other diseases of the circulatory system; Z79.899 Other long term (current) drug therapy; Z68.28 Body mass index [BMI] 28.0-28.9, adult

== ENCOUNTER → 2019-03-24 | Outpatient (CLI) | payer OTHER ==
[~2019-03-24] MED LIST changes: +PANTOPRAZOLE SO40 MG PO
[2019-03-24 08:54] LABS: BUN 14 mg/dl (7-24); CHLORIDE 106 mmol/L (98-107); CREATININE 0.88 mg/dL (0.70-1.30); POTASSIUM 4.2 mmol/L (3.5-5.1); SODIUM 137 mmol/L (136-145)
== END | disposition home or self-care (01) ==
LOC: LAB 07:16
PROVIDERS: Internal Medicine
DX: E87.1 Hypo-osmolality and hyponatremia (principal)

== ENCOUNTER 2019-04-04 12:09 | Emergency (ER) | payer OTHER ==
[~2019-04-04] VITALS: Ht 170.1 cm; Wt 83.9 kg
[2019-04-04 12:46] LABS: BASO % 0.2 % (0.0-1.0); EOS # 0.1 10*3/uL (0.0-0.4); EOS % 0.8 % (1.0-4.0); HEMATOCRIT 41.4 % (42.0-52.0); HEMOGLOBIN 14.5 g/dl (14.0-18.0); LYMPH # 2.1 10*3/uL (1.3-4.4); LYMPH % 23.7 % (27.0-41.0); MEAN CELL VOLUME 90.4 fl (80.0-94.0); MEAN CORPUSCULAR HGB 31.7 pg (27.0-31.0); MEAN PLATELET VOLUME 9.8 fl (9.6-12.3); MONO # 0.8 10*3/uL (0.1-1.0); MONO % 9.4 % (3.0-9.0); NEUT # 5.7 10*3/uL (2.3-7.9); NEUT % 65.4 % (47.0-73.0); PLATELET COUNT AUTOMATED 235 10*3/uL (130-400); RED BLOOD COUNT 4.58 10*6/uL (4.50-5.90); RED CELL DISTRI WIDTH 13.2 % (0-14.5); WHITE BLOOD COUNT 8.7 10*3/uL (4.8-10.8)
[2019-04-04 12:57] LABS: ACT PARTIAL THROMBO TIME 25.7 SECONDS (20.0-32.1)
[2019-04-04 13:02] LABS: ALBUMIN 3.6 gm/dl (3.1-4.5); ALKALINE PHOSPHATASE 85 U/L (45-117); BUN 6 mg/dl (7-24); CHLORIDE 102 mmol/L (98-107); POTASSIUM 4.1 mmol/L (3.5-5.1); SGOT/AST 21 IU/L (3-35); SGPT/ALT 33 U/L (12-78); SODIUM 132 mmol/L (136-145); TOTAL PROTEIN 7.6 gm/dL (6.4-8.2)
[2019-04-04 13:03] LABS: ETHYL ALCOHOL < 3.0 mg/dl (<3); TROPONIN I < 0.015 ng/ml (<0.045)
[2019-04-04 13:41] LABS: BILIRUBIN NEGATIVE (NEGATIVE); BLOOD NEGATIVE (NEGATIVE); CLARITY SL CLOUDY (CLEAR); COLOR YELLOW (YELLOW); GLUCOSE NEGATIVE (NEGATIVE); KETONE NEGATIVE (NEGATIVE); LEUKO ESTERASE NEGATIVE (NEGATIVE); NITRITE NEGATIVE (NEGATIVE); UROBILINOGEN 0.2 E.U./dl (0.2-1.0)
[2019-04-04 13:49] LABS: BACTERIA TRACE; EPITHELIAL CELLS 0-2; MUCOUS 1+; RBC 0-2 rbc/hpf (0-2); URINE AMPHETAMINES < 1000 (1000ng/ml); URINE BARBITURATES < 200 (200ng/ml); URINE BENZODIAZEPINES < 200 (200ng/ml); URINE CANNABINOIDS (THC) < 50 (50ng/ml); URINE COCAINE < 300 (300ng/ml); URINE METHADONE < 300 (300ng/ml); URINE OPIATES < 300 (300ng/ml)
[2019-04-04 13:53] LABS: URINE PHENCYCLIDINE < 25 (25ng/ml)
== END 2019-04-04 15:53 | disposition home or self-care (01) ==
LOC: ED 12:09
PROVIDERS: Internal Medicine
DX: F41.9 Anxiety disorder, unspecified (principal); R51 Headache; R45.0 Nervousness; R25.1 Tremor, unspecified; I10 Essential (primary) hypertension; F17.210 Nicotine dependence, cigarettes, uncomplicated; Z79.899 Other long term (current) drug therapy

== ENCOUNTER → 2019-04-16 | Outpatient (CLI) | payer OTHER ==
[~2019-04-16] MED LIST changes: +AMLODIPINE BESYL5 MG PO; +NATURE'S BLEND F1 MG PO
== END | disposition home or self-care (01) ==
LOC: RESCLI 01:53
DX: I10 Essential (primary) hypertension (principal); F41.9 Anxiety disorder, unspecified; F10.10 Alcohol abuse, uncomplicated; E87.1 Hypo-osmolality and hyponatremia; Z79.899 Other long term (current) drug therapy

== ENCOUNTER 2019-05-10 10:44 | Inpatient (IN) | payer OTHER ==
[~2019-05-10] VITALS: Ht 170.2 cm; Wt 84.8 kg
[~2019-05-10 10:44] MED LIST changes: -AMLODIPINE BESYL5 MG PO; -NATURE'S BLEND F1 MG PO
[2019-05-10 10:46] VITALS: BP 154/103
[2019-05-10 11:13] VITALS: BP 130/80
[2019-05-10 11:40] LABS: HEMATOCRIT 44.8 % (42.0-52.0); HEMOGLOBIN 15.3 g/dl (14.0-18.0); MEAN CELL VOLUME 91.8 fl (80.0-94.0); MEAN CORPUSCULAR HGB 31.4 pg (27.0-31.0); MEAN CORPUSCULAR HGB CONC 34.2 g/dl (33.0-37.0); MEAN PLATELET VOLUME 9.5 fl (9.6-12.3); PLATELET COUNT AUTOMATED 319 10*3/uL (130-400); RED BLOOD COUNT 4.88 10*6/uL (4.50-5.90); RED CELL DISTRI WIDTH 13.3 % (0-14.5); WHITE BLOOD COUNT 9.7 10*3/uL (4.8-10.8)
[2019-05-10 11:41] LABS: BILIRUBIN NEGATIVE (NEGATIVE); BLOOD NEGATIVE (NEGATIVE); CLARITY CLEAR (CLEAR); COLOR YELLOW (YELLOW); GLUCOSE NEGATIVE (NEGATIVE); KETONE NEGATIVE (NEGATIVE); LEUKO ESTERASE NEGATIVE (NEGATIVE); NITRITE NEGATIVE (NEGATIVE); PH 6.5 (5.0-9.0); SPECIFIC GRAVITY <= 1.005 (1.005-1.030); UROBILINOGEN 0.2 E.U./dl (0.2-1.0)
[2019-05-10 11:57] LABS: ALBUMIN 3.3 gm/dl (3.1-4.5); ALKALINE PHOSPHATASE 68 U/L (45-117); BUN 8 mg/dl (7-24); CHLORIDE 91 mmol/L (98-107); LIPASE 121 U/L (73-393); POTASSIUM 4.2 mmol/L (3.5-5.1); SGOT/AST 23 IU/L (3-35); SGPT/ALT 50 U/L (12-78); SODIUM 123 mmol/L (136-145); TOTAL PROTEIN 7.9 gm/dL (6.4-8.2)
[2019-05-10 12:11] LABS: PLATELET SUFFICIENCY NORMAL (NORMAL); TOTAL CELLS COUNTED 100 #CELLS
[2019-05-10 12:44] LABS: ETHYL ALCOHOL < 3.0 mg/dl (<3)
--- NOTE | 2019-05-10 14:18 | NUR ---
URSULA FROM DR COOK'S ANSWERING SERVICE NOTIFIED OF CONSULT.
[2019-05-10 14:20] VITALS: BP 149/99
[2019-05-10] MEDS ORDERED: AMLODIPINE BESYL5 MG PO (14:27)
--- NOTE | 2019-05-10 14:49 | NUR ---
A 53, admitted to , under the services of MARILYNN Hansen DO with a diagnosis of HYPONATREMIA. Chief complaint is NAUSEA/VOMITING. Patient arrived via stretcher from ER. Monitor applied. Initial assessment completed. Vital signs taken and recorded. MARILYNN HANSEN DO notified of admission to the unit. Orders received. See assessment for past medical history, medications and allergies. Patient and/or family oriented to unit. [facility] visitation policy reviewed. Clothing/patient valuable form completed. TAD CASAS
--- NOTE | 2019-05-10 15:38 | NUR ---
SPOKE TO [employer] SESSIONS DIRECTOR PHYSICIAN FOR NEPHROLOGY, NO NEW ORDERS AT THIS TIME. DR. RUIZ WILL SEE PATIENT TOMORROW
[2019-05-10] MEDS ORDERED: NATURE'S BLEND F1 MG PO (16:27)
--- NOTE | 2019-05-10 16:28 | NUR ---
ATIVAN GIVEN FOR ANXIETY
--- NOTE | 2019-05-10 19:35 | NUR ---
PATIENT RESTING IN BED WITH NO NEEDS MADE. C/O HICCUPS. BED IN LOWEST POSITION, CALL LIGHT IN REACH
--- NOTE | 2019-05-10 19:54 | NUR ---
DR SOOD AWARE OF PATIENT C/O HICCUPS AND STATES THERE IS NOTHING WE CAN DO FOR THEM.
[2019-05-10 20:00] VITALS: BP 142/96
--- NOTE | 2019-05-10 22:36 | NUR ---
PATIENT MEDICATED WITH PRN RESTORIL FOR C/O SLEEPLESSNESS. CONTINUES TO COMPLAIN ABOUT HICCUPS. BED IN LOWEST POSITION, CALL LIGHT IN REACH
[2019-05-11] VITALS: BP 130/82
[2019-05-11 01:57] LABS: URINE AMPHETAMINES < 1000 (1000ng/ml); URINE BARBITURATES < 200 (200ng/ml); URINE BENZODIAZEPINES < 200 (200ng/ml); URINE CANNABINOIDS (THC) < 50 (50ng/ml); URINE COCAINE < 300 (300ng/ml); URINE METHADONE < 300 (300ng/ml); URINE OPIATES < 300 (300ng/ml)
[2019-05-11 02:02] LABS: URINE PHENCYCLIDINE < 25 (25ng/ml)
--- NOTE | 2019-05-11 02:43 | NUR ---
24 HR chart check completed.
[2019-05-11 07:11] LABS: BASO % 0.5 % (0.0-1.0); EOS % 0.6 % (1.0-4.0); HEMATOCRIT 42.1 % (42.0-52.0); HEMOGLOBIN 14.3 g/dl (14.0-18.0); LYMPH # 1.7 10*3/uL (1.3-4.4); LYMPH % 26.3 % (27.0-41.0); MEAN CELL VOLUME 92.9 fl (80.0-94.0); MEAN CORPUSCULAR HGB 31.6 pg (27.0-31.0); MEAN PLATELET VOLUME 9.8 fl (9.6-12.3); MONO % 16.2 % (3.0-9.0); NEUT # 3.5 10*3/uL (2.3-7.9); NEUT % 55.8 % (47.0-73.0); PLATELET COUNT AUTOMATED 250 10*3/uL (130-400); RED BLOOD COUNT 4.53 10*6/uL (4.50-5.90); RED CELL DISTRI WIDTH 13.4 % (0-14.5); WHITE BLOOD COUNT 6.3 10*3/uL (4.8-10.8)
[2019-05-11 07:19] LABS: ALBUMIN 3.2 gm/dl (3.1-4.5); ALKALINE PHOSPHATASE 62 U/L (45-117); BUN 6 mg/dl (7-24); CHLORIDE 100 mmol/L (98-107); CREATININE 0.74 mg/dL (0.70-1.30); PHOSPHOROUS 3.7 mg/dL (2.5-4.9); POTASSIUM 3.9 mmol/L (3.5-5.1); SGOT/AST 31 IU/L (3-35); SGPT/ALT 53 U/L (12-78); SODIUM 132 mmol/L (136-145)
[2019-05-11 07:57] VITALS: BP 120/78
--- NOTE | 2019-05-11 09:26 | NUR ---
24 HR chart check completed.
--- NOTE | 2019-05-11 10:30 | NUR ---
General Lot Attendant in to talk to patient. Patient states lives at home alone with his family checking in on him. There are 12 steps in the home. Physician: resident clinic Pharmacy: [facility] Home health services: none Patient's level of ADLs: INDEPENDENT Patient has working utilities: yes DME: none Follow-up physician's appointment after d/c: will be made by the hospitalist nurse director upon discharge Does patient want to access PORTAL?: no Discharge plan discussed with patient. he lives at home alone with his family checking in on him. He is independent in his ADLs and ambulation. Discussed home health care services and he denies any home needs at this time. When medically stable he will be discharged to home. He will drive himself home as his car in here in the emergency room parking lot. DONYA JIMENEZ
--- NOTE | 2019-05-11 11:16 | NUR ---
ORDERS GIVEN FROM DR. COOK TO DISCONTINUE IV 0.9 NS FLUIDS.
[2019-05-11 12:00] VITALS: BP 122/82
[2019-05-11 20:00] VITALS: BP 124/72
--- NOTE | 2019-05-11 21:39 | NUR ---
PATIENT RESTING IN BED WATCHING TV. STATES HE DOES NOT WANT WOKEN UP FOR MIDNIGHT VITALS OR MORNING REPORT.
--- NOTE | 2019-05-12 00:42 | NUR ---
PATIENT REFUSED MIDNIGHT VITALS
--- NOTE | 2019-05-12 01:33 | NUR ---
PATIENT RESTING IN BED WITH NO S/S OF DISTRESS. BED IN LOWEST POSITION, CALL LIGHT IN REACH
--- NOTE | 2019-05-12 01:49 | NUR ---
24 HR chart check completed.
--- NOTE | 2019-05-12 04:14 | NUR ---
PATIENT RESTING IN BED WITH NO S/S OF DISTRESS. BED IN LOWEST POSITION, CALL LIGHT IN REACH
[2019-05-12 08:00] VITALS: BP 132/84
--- NOTE | 2019-05-12 09:21 | NUR ---
Discharge instructions reviewed with patient/family. Patient receptive and verbalizes understanding. Follow-up care arranged. Written instructions given to patient/family. SEAN BAZZI
--- NOTE | 2019-05-12 09:21 | NUR ---
PT DISCHARGED AT THIS TIME TO HOME. HE DROVE HIMSELF TO HOSPITAL SO AMBULATED OUT TO HIS CAR.
== END 2019-05-12 09:25 | disposition home or self-care (01) | DRG 426 ==
LOC: ED 10:44 → EDHOLD 12:56 → 5E 12:56
PROVIDERS: Internal Medicine; Nurse Practitioner Family; Surgery; ADMIT Emergency Medicine
DX: E87.1 Hypo-osmolality and hyponatremia (principal); E87.8 Other disorders of electrolyte and fluid balance, not elsewhere classified; R06.6 Hiccough; R73.9 Hyperglycemia, unspecified; I10 Essential (primary) hypertension; F17.210 Nicotine dependence, cigarettes, uncomplicated; E66.3 Overweight; F41.9 Anxiety disorder, unspecified; F10.21 Alcohol dependence, in remission; E83.41 Hypermagnesemia; E44.1 Mild protein-calorie malnutrition; Z82.49 Family history of ischemic heart disease and other diseases of the circulatory system; Z79.899 Other long term (current) drug therapy; Z68.29 Body mass index [BMI] 29.0-29.9, adult

== ENCOUNTER 2020-01-01 14:10 | Inpatient (IN) | payer OTHER ==
[~2020-01-01] VITALS: Ht 170.1 cm; Wt 81.0 kg
[~2020-01-01 14:10] MED LIST changes: +AMLODIPINE BESYL5 MG PO; +NATURE'S BLEND F1 MG PO
[2020-01-01 14:30] VITALS: BP 159/100
[2020-01-01 15:27] LABS: BASO % 0.4 % (0.0-1.0); EOS % 0.2 % (1.0-4.0); LYMPH # 1.3 10*3/uL (1.3-4.4); LYMPH % 12.5 % (27.0-41.0); MEAN CORPUSCULAR HGB 31.7 pg (27.0-31.0); MEAN CORPUSCULAR HGB CONC 36.4 g/dl (33.0-37.0); MEAN PLATELET VOLUME 9.3 fl (9.6-12.3); MONO # 1.2 10*3/uL (0.1-1.0); MONO % 11.1 % (3.0-9.0); NEUT # 7.8 10*3/uL (2.3-7.9); NEUT % 75.2 % (47.0-73.0); PLATELET COUNT AUTOMATED 366 10*3/uL (130-400); RED BLOOD COUNT 4.83 10*6/uL (4.50-5.90); WHITE BLOOD COUNT 10.4 10*3/uL (4.8-10.8)
[2020-01-01 15:43] LABS: ALBUMIN 3.6 gm/dl (3.1-4.5); ALKALINE PHOSPHATASE 78 U/L (45-117); BUN 5 mg/dl (7-24); CHLORIDE 86 mmol/L (98-107); CREATININE 0.63 mg/dL (0.70-1.30); POTASSIUM 3.9 mmol/L (3.5-5.1); SGOT/AST 28 IU/L (3-35); SGPT/ALT 50 U/L (12-78); TOTAL PROTEIN 7.9 gm/dL (6.4-8.2)
[2020-01-01 15:45] LABS: SODIUM 118 mmol/L (136-145); TROPONIN I < 0.015 ng/ml (<0.045)
[2020-01-01 15:49] LABS: THYROID STIM HORMONE (HS) 0.849 uIU/ml (0.358-4.75)
[2020-01-01 16:11] LABS: BILIRUBIN NEGATIVE (NEGATIVE); BLOOD NEGATIVE (NEGATIVE); CLARITY CLEAR (CLEAR); COLOR YELLOW (YELLOW); GLUCOSE NEGATIVE (NEGATIVE); KETONE NEGATIVE (NEGATIVE); LEUKO ESTERASE NEGATIVE (NEGATIVE); NITRITE NEGATIVE (NEGATIVE); PH 5.5 (5.0-9.0); UROBILINOGEN 0.2 E.U./dl (0.2-1.0)
[2020-01-01 16:15] LABS: BACTERIA 1+
[2020-01-01 16:21] LABS: URINE BARBITURATES < 200 (200ng/ml); URINE CANNABINOIDS (THC) > 50 (50ng/ml); URINE COCAINE < 300 (300ng/ml); URINE METHADONE < 300 (300ng/ml); URINE OPIATES < 300 (300ng/ml)
[2020-01-01 16:23] LABS: URINE AMPHETAMINES < 1000 (1000ng/ml); URINE BENZODIAZEPINES < 200 (200ng/ml); URINE PHENCYCLIDINE < 25 (25ng/ml)
[2020-01-01 17:28] VITALS: BP 162/90
[2020-01-01 17:30] VITALS: BP 162/90
--- NOTE | 2020-01-01 17:30 | NUR ---
A 54, admitted to 5E, under the services of KEEGAN Lockhart DO with a diagnosis of DIZZINESS. Chief complaint is DIZZINESS. Patient arrived via bed from ER. Monitor applied. Initial assessment completed. Vital signs taken and recorded. KEEGAN LOCKHART DO notified of admission to the unit. Orders received. See assessment for past medical history, medications and allergies. Patient and/or family oriented to unit. [facility] visitation policy reviewed. Clothing/patient valuable form completed. RAND WORTHINGTON
--- NOTE | 2020-01-01 19:26 | NUR ---
HOME MED VERIFIED WITH PT AT BEDSIDE.
[2020-01-01 20:00] VITALS: BP 150/95
--- NOTE | 2020-01-01 20:27 | NUR ---
DR MUÑOZ AWARE OF PATIENT'S BLOOD PRESSURE, NAUSEA, AND ANXIOUSNESS. STATES TO GIVE A DOSE OF LISINOPRIL NOW
--- NOTE | 2020-01-01 20:33 | NUR ---
MEDICATED WITH PRN ATIVAN FOR ANXIOUSNESS, UNCONTROLLED HICCUPS, AND TREMORS. MEDICATED WITH PRN ZOFRAN FOR NAUSEA AND DRY HEAVES. WILL MONITOR
--- NOTE | 2020-01-01 21:14 | NUR ---
MEDICATED SOMEWHAT EFFECTIVE PER PATIENT. STILL C/O HICCUPS.
[2020-01-01 22:40] LABS: BUN 6 mg/dl (7-24); CHLORIDE 87 mmol/L (98-107); CREATININE 0.65 mg/dL (0.70-1.30); POTASSIUM 4.5 mmol/L (3.5-5.1)
[2020-01-01 22:43] LABS: SODIUM 118 mmol/L (136-145)
[2020-01-02] VITALS: BP 129/89
[2020-01-02 02:11] LABS: BUN 6 mg/dl (7-24); CHLORIDE 89 mmol/L (98-107); CREATININE 0.68 mg/dL (0.70-1.30); POTASSIUM 3.8 mmol/L (3.5-5.1); SODIUM 122 mmol/L (136-145)
[2020-01-02 07:04] LABS: BASO % 0.5 % (0.0-1.0); EOS # 0.1 10*3/uL (0.0-0.4); EOS % 1.3 % (1.0-4.0); HEMATOCRIT 41.2 % (42.0-52.0); LYMPH # 1.4 10*3/uL (1.3-4.4); LYMPH % 23.7 % (27.0-41.0); MEAN CELL VOLUME 88.6 fl (80.0-94.0); MEAN CORPUSCULAR HGB 31.6 pg (27.0-31.0); MEAN CORPUSCULAR HGB CONC 35.7 g/dl (33.0-37.0); MEAN PLATELET VOLUME 9.7 fl (9.6-12.3); MONO # 1.2 10*3/uL (0.1-1.0); MONO % 19.5 % (3.0-9.0); NEUT # 3.3 10*3/uL (2.3-7.9); NEUT % 54.5 % (47.0-73.0); PLATELET COUNT AUTOMATED 294 10*3/uL (130-400); RED BLOOD COUNT 4.65 10*6/uL (4.50-5.90); RED CELL DISTRI WIDTH 12.4 % (0-14.5)
[2020-01-02 07:32] LABS: BUN 5 mg/dl (7-24); CHLORIDE 93 mmol/L (98-107); SODIUM 125 mmol/L (136-145)
[2020-01-02 08:00] VITALS: BP 144/84
--- NOTE | 2020-01-02 08:00 | NUR ---
PAITENT RESTING IN BED WITH C/O OF HICCUPS. NS@60/HR.
[2020-01-02 13:31] VITALS: BP 143/94
[2020-01-02 16:00] VITALS: BP 131/85
[2020-01-02 20:00] VITALS: BP 125/83
--- NOTE | 2020-01-02 20:00 | NUR ---
PT RESTING IN BED TALKING ON PHONE, AWAKE, ALERT AND ORIENTED. RESP NONLABORED. NO ACUTE DISTRESS NOTED. NO COMPLAINTS VOICED. IVF'S INFUSING ORDERED WITHOUT DIFFICULTY.
--- NOTE | 2020-01-02 21:41 | NUR ---
MEDICATED WITH ATIVAN PER PRN ORDER FOR C/O AGITATION,
[2020-01-03] VITALS: BP 106/75
[2020-01-03 08:00] VITALS: BP 118/80
[2020-01-03 08:51] LABS: BUN 7 mg/dl (7-24); CHLORIDE 104 mmol/L (98-107); CREATININE 0.81 mg/dL (0.70-1.30); POTASSIUM 3.9 mmol/L (3.5-5.1); SODIUM 134 mmol/L (136-145)
[2020-01-03 12:00] VITALS: BP 156/91
[2020-01-03 16:00] VITALS: BP 124/76
--- NOTE | 2020-01-03 16:30 | NUR ---
PT SITTING UP IN CHAIR WATCHING TV. DENIES ANY PROBLEMS RIGHT NOW. GETTING READY TO EAT DINNER. CALL LIGHT WITHIN REACH.
[2020-01-03 20:00] VITALS: BP 149/96
--- NOTE | 2020-01-03 21:48 | NUR ---
PRN IV ATIVAN GIVEN AT THIS TIME AT PATIENT REQUEST TO HELP REDUCE ANXIETY SO HE COULD SLEEP. PATIENT TOLERATED WELL, CALL LIGHT WITHIN REACH, WILL CONTINUE TO MONITOR.
--- NOTE | 2020-01-03 22:40 | NUR ---
PATIENT RESTING IN BED AT THIS TIME IN A POSITION OF COMFORT, RESPIRATIONS EASY AND NON-LABORED AT THIS TIME, PRN ATIVAN APPEARS TO BE EFFECTIVE, CALL LIGHT WITHIN REACH WILL CONTINUE TO MONITOR.
[2020-01-04] VITALS: BP 137/85
--- NOTE | 2020-01-04 02:32 | NUR ---
24 HOUR CHART CHECK COMPLETE
[2020-01-04 05:48] LABS: BUN 6 mg/dl (7-24); CHLORIDE 105 mmol/L (98-107); CREATININE 0.78 mg/dL (0.70-1.30); POTASSIUM 3.9 mmol/L (3.5-5.1); SODIUM 136 mmol/L (136-145)
[2020-01-04 08:00] VITALS: BP 130/88
--- NOTE | 2020-01-04 11:33 | NUR ---
Discharge instructions reviewed with patient. Patient receptive and verbalizes understanding. Follow-up care arranged. Written instructions given to patient. HE HAS ORDERED A MEAL, WILL EAT LUNCH PRIOR TO DISCHARGE HOME. JAUN HENAO
--- NOTE | 2020-01-04 12:30 | NUR ---
PATIENT DISCHARGED TO [facility], AMBULATORY, FOR TRANSPORT HOME BY PRIVATE VEHICLE.
--- NOTE | 2020-01-04 14:30 | NUR ---
Prestidigitator in to talk to patient. Patient states lives at HOME with ALONE. There are FEW steps in the home. Physician: [facility]acy: [facility] Home health services: NONE Patient's level of ADLs: INDEPENDENT Patient has working utilities: YES DME: NONE Follow-up physician's appointment after d/c: WILL BE MADE BY HOSPITALIST NURSE DIRECTOR ON DISCHARGE Does patient want to access PORTAL?: NO Discharge plan PT LIVES AT HOME ALONE AND IS INDEPENDENT IN HIS CARE. DENIES HE WILL HAVE ANY NEEDS ON DISCHARGE. PLAN IS TO RETURN HOME WHEN MEDICALLY STABLE. WILL CONTINUE TO FOLLOW. PT STATES HE WILL DRIVE HIMSELF HOME ON DISCHARGE. . FRANKLIN MCGRATH
== END 2020-01-04 12:30 | disposition home or self-care (01) | DRG 426 ==
LOC: ED 14:10 → EDHOLD 16:18 → 5E 16:26
PROVIDERS: Internal Medicine; ADMIT Internal Medicine
DX: E87.1 Hypo-osmolality and hyponatremia (principal); E87.8 Other disorders of electrolyte and fluid balance, not elsewhere classified; F41.9 Anxiety disorder, unspecified; I10 Essential (primary) hypertension; R00.0 Tachycardia, unspecified; F17.210 Nicotine dependence, cigarettes, uncomplicated; F10.21 Alcohol dependence, in remission; Z79.899 Other long term (current) drug therapy

== ENCOUNTER → 2020-01-14 | Outpatient (CLI) | payer OTHER | END | disposition home or self-care (01) | LOC: RESCLI 00:48 | DX: R74.0 Nonspecific elevation of levels of transaminase and lactic acid dehydrogenase [LDH] (principal); I10 Essential (primary) hypertension; E55.9 Vitamin D deficiency, unspecified; I51.7 Cardiomegaly; F10.10 Alcohol abuse, uncomplicated; F41.9 Anxiety disorder, unspecified; E87.1 Hypo-osmolality and hyponatremia; E53.8 Deficiency of other specified B group vitamins; Z87.891 Personal history of nicotine dependence; Z79.899 Other long term (current) drug therapy ==

== ENCOUNTER → 2020-02-02 | Outpatient (CLI) | payer OTHER | END | disposition home or self-care (01) | LOC: RESCLI 01:48 | DX: I11.0 Hypertensive heart disease with heart failure (principal); I50.1 Left ventricular failure, unspecified; E53.8 Deficiency of other specified B group vitamins; F41.9 Anxiety disorder, unspecified; F10.10 Alcohol abuse, uncomplicated; Z79.899 Other long term (current) drug therapy; Z87.891 Personal history of nicotine dependence; E55.9 Vitamin D deficiency, unspecified ==

== ENCOUNTER 2020-03-09 13:57 | Inpatient (IN) | payer OTHER ==
[~2020-03-09] VITALS: Ht 170.1 cm; Wt 82.7 kg
[2020-03-09 14:03] VITALS: BP 164/94
[2020-03-09 14:56] LABS: BASO # 0.1 10*3/uL (0.0-0.1); BASO % 0.7 % (0.0-1.0); EOS # 0.1 10*3/uL (0.0-0.4); EOS % 1.4 % (1.0-4.0); HEMATOCRIT 41.5 % (42.0-52.0); MEAN CELL VOLUME 86.5 fl (80.0-94.0); MEAN CORPUSCULAR HGB 30.6 pg (27.0-31.0); MEAN CORPUSCULAR HGB CONC 35.4 g/dl (33.0-37.0); MONO % 12.1 % (3.0-9.0); NEUT # 5.4 10*3/uL (2.3-7.9); NEUT % 62.3 % (47.0-73.0); PLATELET COUNT AUTOMATED 306 10*3/uL (130-400); RED CELL DISTRI WIDTH 12.3 % (0-14.5); WHITE BLOOD COUNT 8.6 10*3/uL (4.8-10.8)
[2020-03-09 15:02] LABS: URINE CHLORIDE, RANDOM 65 mmol/L
[2020-03-09 15:07] LABS: ACT PARTIAL THROMBO TIME 29.6 SECONDS (20.0-32.1); INTERNATIONAL NORM RATIO 1.1 (2.0-3.5)
[2020-03-09 15:13] LABS: ALBUMIN 3.6 gm/dl (3.1-4.5); ALKALINE PHOSPHATASE 77 U/L (45-117); BUN 6 mg/dl (7-24); CHLORIDE 88 mmol/L (98-107); POTASSIUM 2.9 mmol/L (3.5-5.1); SGOT/AST 16 IU/L (3-35); SGPT/ALT 26 U/L (12-78); SODIUM 123 mmol/L (136-145); TOTAL PROTEIN 7.7 gm/dL (6.4-8.2)
[2020-03-09 15:15] LABS: TROPONIN I < 0.015 ng/ml (<0.045)
[2020-03-09 16:02] VITALS: BP 135/102
[2020-03-09] MEDS ORDERED: AMLODIPINE BESY10 MG PO (16:20)
[2020-03-09] MEDS ORDERED: NATURE'S BLEND F1 MG PO (16:21)
[2020-03-09] MEDS ORDERED: HYDROCHLOROTH12.5 M3 PO (16:21)
[2020-03-09] MEDS ORDERED: HYDROXYZINE HCL25 MG PO (16:21)
[2020-03-09 16:28] VITALS: BP 135/102
[2020-03-09 19:05] VITALS: BP 118/91
[2020-03-09 19:51] LABS: BUN 6 mg/dl (7-24); CHLORIDE 93 mmol/L (98-107); CREATININE 0.64 mg/dL (0.70-1.30); POTASSIUM 3.1 mmol/L (3.5-5.1); SODIUM 124 mmol/L (136-145)
[2020-03-09 20:05] VITALS: BP 148/90
[2020-03-09 22:33] LABS: BUN 5 mg/dl (7-24); CHLORIDE 91 mmol/L (98-107); CREATININE 0.69 mg/dL (0.70-1.30); POTASSIUM 3.6 mmol/L (3.5-5.1); SODIUM 125 mmol/L (136-145)
[2020-03-10] VITALS: BP 155/92
[2020-03-10 02:14] LABS: BUN 4 mg/dl (7-24); CHLORIDE 96 mmol/L (98-107); POTASSIUM 3.7 mmol/L (3.5-5.1); SODIUM 129 mmol/L (136-145)
[2020-03-10 06:34] LABS: BUN 3 mg/dl (7-24); CHLORIDE 98 mmol/L (98-107); CREATININE 0.63 mg/dL (0.70-1.30); POTASSIUM 3.7 mmol/L (3.5-5.1); SODIUM 130 mmol/L (136-145)
[2020-03-10 06:45] LABS: BASO % 0.5 % (0.0-1.0); EOS # 0.1 10*3/uL (0.0-0.4); EOS % 2.1 % (1.0-4.0); HEMATOCRIT 41.6 % (42.0-52.0); LYMPH # 1.4 10*3/uL (1.3-4.4); MEAN CELL VOLUME 89.3 fl (80.0-94.0); MEAN CORPUSCULAR HGB 30.9 pg (27.0-31.0); MEAN CORPUSCULAR HGB CONC 34.6 g/dl (33.0-37.0); MEAN PLATELET VOLUME 10.4 fl (9.6-12.3); MONO % 17.5 % (3.0-9.0); NEUT # 3.1 10*3/uL (2.3-7.9); NEUT % 54.5 % (47.0-73.0); PLATELET COUNT AUTOMATED 313 10*3/uL (130-400); RED BLOOD COUNT 4.66 10*6/uL (4.50-5.90); RED CELL DISTRI WIDTH 12.5 % (0-14.5); WHITE BLOOD COUNT 5.6 10*3/uL (4.8-10.8)
[2020-03-10 08:00] VITALS: BP 140/85
[2020-03-10 10:27] LABS: BUN 4 mg/dl (7-24); CHLORIDE 100 mmol/L (98-107); CREATININE 0.78 mg/dL (0.70-1.30); POTASSIUM 3.8 mmol/L (3.5-5.1); SODIUM 130 mmol/L (136-145)
[2020-03-10 12:00] VITALS: BP 144/69
[2020-03-10 15:24] LABS: BUN 5 mg/dl (7-24); CHLORIDE 104 mmol/L (98-107); POTASSIUM 3.6 mmol/L (3.5-5.1); SODIUM 135 mmol/L (136-145)
[2020-03-10 16:00] VITALS: BP 148/58
[2020-03-10 20:00] VITALS: BP 136/94
[2020-03-11] VITALS: BP 102/64
[2020-03-11 06:59] LABS: BUN 5 mg/dl (7-24); CHLORIDE 106 mmol/L (98-107); SODIUM 135 mmol/L (136-145)
[2020-03-11 08:00] VITALS: BP 130/82; BP 143/96
== END 2020-03-11 13:54 | disposition home or self-care (01) | DRG 426 ==
LOC: ED 13:57 → EDHOLD 15:33 → 5E 15:33
PROVIDERS: Family Medicine; Internal Medicine; Student in an Organized Health Care Education/Training Program; ADMIT Internal Medicine
DX: E87.1 Hypo-osmolality and hyponatremia (principal); I10 Essential (primary) hypertension; F41.9 Anxiety disorder, unspecified; E87.8 Other disorders of electrolyte and fluid balance, not elsewhere classified; E87.6 Hypokalemia; R00.0 Tachycardia, unspecified; R63.1 Polydipsia; F54 Psychological and behavioral factors associated with disorders or diseases classified elsewhere; E66.3 Overweight; Z68.26 Body mass index [BMI] 26.0-26.9, adult; E83.51 Hypocalcemia; R65.10 Systemic inflammatory response syndrome (SIRS) of non-infectious origin without acute organ dysfunction; Z91.030 Bee allergy status; Z87.891 Personal history of nicotine dependence; Z82.49 Family history of ischemic heart disease and other diseases of the circulatory system; Z79.899 Other long term (current) drug therapy